=== PATIENT | female | born 1995 | race Caucasian/White ===

== ENCOUNTER 2019-02-09 03:46 | Emergency (ER) | payer OTHER ==
[2019-02-09] MEDS: ONDANSETRON (ODT) 4 MG TAB ODT (04:22)
[2019-02-09] MEDS: HYDROCODONE/APAP (5/325) TAB PO (04:23)
== END 2019-02-09 05:28 | disposition home or self-care (01) ==
LOC: FTE 03:46
DX: S02.2XXA Fracture of nasal bones, initial encounter for closed fracture (principal); F17.210 Nicotine dependence, cigarettes, uncomplicated; J45.909 Unspecified asthma, uncomplicated; W01.0XXA Fall on same level from slipping, tripping and stumbling without subsequent striking against object, initial encounter; Y92.9 Unspecified place or not applicable
CPT/HCPCS: 70486; 99284-25